=== PATIENT | female | born 1995 | race Caucasian/White ===

== ENCOUNTER 2020-10-25 13:44 | Emergency (ER) | payer OTHER ==
[~2020-10-25] VITALS: Ht 162.6 cm; Wt 56.7 kg
[~2020-10-25 13:44] MED LIST: NAPROSYN500 MG PO; NOHOMEMEDICATIONS; NORCO 5-325 TA1 EACH PO
[2020-10-25] MEDS ORDERED: SERTRALINE HCL100 MG PO (13:49)
[2020-10-25] MEDS ORDERED: ESTARYLLA1 EACH PO (13:51)
[2020-10-25 14:10] LABS: ABSOLUTE NEUTROPHILS 4.3 thou/uL (1.4-8.2); BASOPHILS 0.5 % (0.0-2.0); EOSINOPHILS 0.9 % (0.0-3.0); HEMATOCRIT 41.1 % (37.0-47.0); LYMPHOCYTES 27.1 % (24.0-44.0); MCH 30.3 pg (26.0-34.0); MONOCYTES 4.3 % (1.0-8.0); PLATELET COUNT 349 thou/uL (150-400); POLYS 67.2 % (36.0-66.0); RBC 4.61 mil/uL (4.20-5.00); RDW 12.8 % (10.5-14.5); WBC 6.4 thou/uL (4.0-11.0)
[2020-10-25 14:34] LABS: ANION GAP 13 mmol/L (7-16); BUN 7 mg/dL (7-18); CALCIUM 9.2 mg/dL (8.5-10.1); CHLORIDE 100 mmol/L (98-107); CO2 21 mmol/L (21-32); GLUCOSE 120 mg/dL (74-106); POTASSIUM 3.6 mmol/L (3.5-5.1); SODIUM 134 mmol/L (136-145)
[2020-10-25 14:39] LABS: ALBUMIN 3.6 g/dL (3.4-5.0); LIPASE 92 U/L (73-393); SGOT 22 U/L (15-37); SGPT 18 U/L (14-59); TOTAL BILIRUBIN 0.4 mg/dL (0.2-1.0); TOTAL PROTEIN 8.2 g/dL (6.4-8.2)
[2020-10-25 14:41] LABS: DIRECT BILIRUBIN < 0.1 mg/dL (<0.1-0.2)
[2020-10-25 15:00] LABS: URINE BILIRUBIN NEGATIVE (Negative); URINE BLOOD NEGATIVE (Negative); URINE CLARITY CLEAR; URINE COLOR YELLOW; URINE GLUCOSE-RANDOM* NEGATIVE (Negative); URINE KETONES 1+ (Negative); URINE LEUKOCYTES-REFLEX NEGATIVE (Negative); URINE NITRITE-REFLEX NEGATIVE (Negative); URINE PROTEIN (DIPSTICK) NEGATIVE (Negative); URINE UROBILINOGEN 0.2 E.U./dl (0.2-1.0)
[2020-10-25 20:30] VITALS: BP 104/60
== END 2020-10-25 20:32 | disposition short-term general hospital (02) ==
LOC: ER 13:44
PROVIDERS: Nurse Practitioner
DX: R19.04 Left lower quadrant abdominal swelling, mass and lump (principal); R11.2 Nausea with vomiting, unspecified; R19.7 Diarrhea, unspecified; Z79.899 Other long term (current) drug therapy

== ENCOUNTER 2020-11-05 01:13 | Emergency (ER) | payer OTHER ==
[~2020-11-05] VITALS: Ht 165.1 cm; Wt 68.0 kg
[~2020-11-05 01:13] MED LIST changes: +ESTARYLLA1 EACH PO; +SERTRALINE HCL100 MG PO
[2020-11-05 01:45] LABS: ABSOLUTE NEUTROPHILS 6.3 thou/uL (1.4-8.2); BASOPHILS 0.3 % (0.0-2.0); EOSINOPHILS 0.3 % (0.0-3.0); HEMATOCRIT 43.6 % (37.0-47.0); HEMOGLOBIN 14.4 gm/dL (12.0-15.0); LYMPHOCYTES 11.1 % (24.0-44.0); MCH 29.6 pg (26.0-34.0); MCHC 33.1 g/dL (28.0-37.0); MCV 89.5 fL (80.0-100.0); MONOCYTES 2.2 % (1.0-8.0); PLATELET COUNT 423 thou/uL (150-400); POLYS 86.1 % (36.0-66.0); RBC 4.87 mil/uL (4.20-5.00); WBC 7.3 thou/uL (4.0-11.0)
[2020-11-05 02:15] LABS: CALCIUM 9.5 mg/dL (8.5-10.1); POTASSIUM 3.8 mmol/L (3.5-5.1)
[2020-11-05] MEDS ORDERED: NORCO5 PO (02:46)
[2020-11-05] MEDS ORDERED: ZOFRAN ODT4 MG PO (02:46)
[2020-11-05 03:01] VITALS: BP 127/79
== END 2020-11-05 03:02 | disposition home or self-care (01) ==
LOC: ER 01:13
PROVIDERS: Emergency Medicine
DX: R10.2 Pelvic and perineal pain (principal); Z79.899 Other long term (current) drug therapy

== ENCOUNTER 2021-03-18 21:17 | Emergency (ER) | payer OTHER ==
[~2021-03-18] VITALS: Ht 165.1 cm; Wt 67.6 kg
--- NOTE | ~2021-03-18 | EMS ---
[facility] [address] [place] [address] EMS Patient Care Report Name: NIKI RODRIGUEZ Room #: DEP NEVILLE Garcia#: [id number] Admission: 03/18/21 Attend Phys: Discharge: 03/19/21 Date of : [birth year] Report #: [id number] THIS REPORT FOR: //name// Report Transmitted: 03/20/2021 14:28 EMS Care Summary [place], [place]/[facility] Incident [id number] @ 03/18/2021 20:41 Incident Location [address] [place], [place] [id number] Patient NIKI RODRIGUEZ Female, 25 Years 1995 Patient Address [address] [place], [place] [id number] Patient History Depression, Patient Allergies No known allergies, Patient Medications OxyContin, Sertraline, Chief Complaint ABD PAIN Disposition Transported No Lights/[place] Dispatch Reason Abdominal Pain/Problems Transported To [facility] Narrative M41 DISPATCHED TO ABD PAIN. [facility] [address] [place] [address] EMS Patient Care Report Name: NIKI RODRIGUEZ [facility] [id number] Admission: 03/18/21 Attend Phys: Discharge: 03/19/21 Date of : [birth year] Report #: [id number] M41 AOS AND FOUND A FEMALE PT COMPLAINING OF LOWER ABD PAIN SINCE THIS MORNING. THE PT STATES THAT SHE VOMITED ABOUT AN HOUR AGO. THE PT STATES THAT SHE HAS HX OF OVARIAN CYSTS AND STATES THAT SHE BELIEVES THAT IS WHAT IS CAUSING HER PAIN. PT STATES THAT SHE DOES NOT HAVE ANY OTHER COMPLAINTS. PT DENIES CP, SOA, DIZZINESS. PT STATES SHE DOES FEEL NAUSEOUS. PT MOVED TO THE COT WITH STAIRCHAIR. PT MOVED TO THE AMBULANCE. VITALS OBTAINED. BGA OBTAINED. IV ACCESS OBTAINED. 4 LEAD OBTAINED[address] [place]. EN ROUTE PT REMAINED STABLE. REPORT GIVEN TO JAYE POLLACK, SIGNATURES OBTAINED, TRANSFER OF CARE TOOK PLACE. 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 Initial Vitals @21:05P: 74,BP: 125/83,CO: 1,SpO2: 99, @21:09P: 80,R: 18,BP: 141/91,Pain: 8/10,GCS: 15,SpO2: 99,Revised Trauma: 12, @21:01P: 74,R: 18,BP: 132/85,Pain: 8/10,GCS: 15,Glucose: 100,SpO2: 98,Revised Trauma: 12, Assessments @21:07MENTAL:Event Oriented,Person Oriented,Time Oriented,Place Oriented,SKIN:HEENT:Head/Face: No Abnormalities,Neck/Airway: No Abnormalities,LUNG SOUNDS:Left Lower: Guarding,Right Lower: Guarding,Right Lower: Tenderness,Left Lower: Tenderness,General: No Abnormalities,ABDOMEN:Left Lower: Guarding,Right Lower: Guarding,Right Lower: Tenderness,Left Lower: Tenderness,General: No Abnormalities,PELVIS//GI:No Abnormalities,EXTREMITIES:Capillary Refill: Right Upper: < 2 Sec,Left Arm: No Abnormalities,Right Arm: No Abnormalities,Left Leg: No Abnormalities,Right Leg: No Abnormalities,PULSE:Radial: 2+ Normal,NEURO:No Abnormalities, Impression Abdominal Pain Procedures @21:07ALS AssessmentResponse: UnchangedSucceeded@21:07Saline Lock 8cc (20 ga) Site: Antecubital-LeftResponse: UnchangedSucceeded@21:073-Lead ECGResponse: UnchangedSucceeded [facility] [address] [place] [address] EMS Patient Care Report Name: NIKI RODRIGUEZ [facility] [id number] Admission: 03/18/21 Attend Phys: Discharge: 03/19/21 Date of : [birth year] Report #: [id number] Timeline 20:37,Call Received 20:37,Dispatch Notified 20:41,Dispatched 20:41,En Route 20:54,On Scene 21:01,At Patient 21:01,BP: 132/85 M,PULSE: 74,RR: 18 R,SPO2: 98 Ox,ETCO2: ,B,PAIN: 8,GCS: 15, 21:05,BP: 125/83 M,PULSE: 74,RR: R,SPO2: 99 Ox,ETCO2: ,BG: ,PAIN: ,GCS: , 21:07,Depart Scene 21:07,ALS Assessment,Response: UnchangedSucceeded, 21:07,3-Lead ECG,Response: UnchangedSucceeded, 21:07,Saline Lock 8cc 20 ga Site: Antecubital-Left,Response: UnchangedSucceeded, 21:09,BP: 141/91 M,PULSE: 80,RR: 18 R,SPO2: 99 Ox,ETCO2: ,BG: ,PAIN: 8,GCS: 15, 21:13,At Destination 21:23,Call Closed Disclaimer [email or web address] Copyright 2020 [email or web address] This EMS Care Summary contains data elements from the applicable legal record (which may be displayed differently). It is designed to provide pertinent information for the following purposes: continuity of care, clinical quality, and state data reporting. The complete legal record is available to ED staff and administrators of the receiving hospital in [employer]'s Patient Tracker. All data is provided "as is."
[~2021-03-18 21:17] MED LIST changes: +NORCO5 PO; +ZOFRAN ODT4 MG PO
[2021-03-18] MEDS ORDERED: DULCOLAX STOOL100 M1 PO (21:32)
[2021-03-18] MEDS ORDERED: SERTRALINE HCL100 MG PO (21:32)
[2021-03-18 22:20] LABS: HEMATOCRIT 41.6 % (37.0-47.0); HEMOGLOBIN 13.9 gm/dL (12.0-15.0); MCH 31.6 pg (26.0-34.0); MCHC 33.5 g/dL (28.0-37.0); MCV 94.1 fL (80.0-100.0); RBC 4.42 mil/uL (4.20-5.00); RDW 14.1 % (10.5-14.5); WBC 4.6 thou/uL (4.0-11.0)
[2021-03-18 22:51] LABS: ALBUMIN 3.5 g/dL (3.4-5.0); CALCIUM 8.1 mg/dL (8.5-10.1); CREATININE 0.8 mg/dL (0.6-1.0); POTASSIUM 4.2 mmol/L (3.5-5.1); TOTAL BILIRUBIN 0.2 mg/dL (0.2-1.0); TOTAL PROTEIN 7.5 g/dL (6.4-8.2)
[2021-03-19 01:00] LABS: URINE BILIRUBIN NEGATIVE (Negative); URINE BLOOD NEGATIVE (Negative); URINE CLARITY CLEAR; URINE COLOR YELLOW; URINE GLUCOSE-RANDOM* NEGATIVE (Negative); URINE KETONES NEGATIVE (Negative); URINE LEUKOCYTES-REFLEX NEGATIVE (Negative); URINE NITRITE-REFLEX NEGATIVE (Negative); URINE PROTEIN (DIPSTICK) NEGATIVE (Negative); URINE UROBILINOGEN 0.2 E.U./dl (0.2-1.0)
[2021-03-19 04:27] VITALS: BP 162/101
== END 2021-03-19 04:28 | disposition short-term general hospital (02) ==
LOC: ER 21:17
PROVIDERS: Nurse Practitioner Family
DX: R19.04 Left lower quadrant abdominal swelling, mass and lump (principal); Z79.899 Other long term (current) drug therapy